=== PATIENT | male | born 1975 | race Hispanic/Latino ===

== ENCOUNTER 2020-02-22 13:55 | Emergency (ER) | payer SELFPAY ==
[2020-02-22] MEDS ORDERED: HYDROcodone/ACETAMINOPHEN 5-325 MG TAB PO ONE (17:19)
--- NOTE | 2020-02-22 17:24 | Emergency Department Report ---
- General Chief complaint: Skin/Abscess/Foreign Body Stated complaint: LEFT SIDE/EYE IRRITATION Time Seen by Provider: 02/22/20 16:59 Source: patient Mode of arrival: Ambulatory Limitations: No Limitations - History of Present Illness Initial comments: Patient is a 44-year-old male who presents emergency room with complaints of an abscess to the left face that began 2 days ago. He states that it initially began as a small hair bump present. He states that he went to the [facility] 2 days ago and had a haircut and his face shaved. He states that when he woke up the next morning he had facial swelling. He states that he has had purulent drainage present from the face. he states that he also has swelling underneath the left eye. He denies any eye drainage, getting anything into the eye, eye pain. He denies any fever, vomiting, diarrhea, chills. No past medical history. No allergies medications. - Related Data Previous Rx's Medication Instructions Recorded Last Taken Type Cyclobenzaprine [Flexeril 10mg] 10 mg PO TID PRN #30 tablet 07/12/14 Unknown Rx HYDROcodone/APAP 5-325 [[place] 1 each PO Q6HR PRN #20 tablet 07/12/14 Unknown Rx 5/325] Ibuprofen [Motrin] 600 mg PO Q8H PRN #40 tablet 07/12/14 Unknown Rx Acetaminophen/Codeine [Tylenol 1 tab PO Q6H PRN #10 tab 02/22/20 Unknown Rx /Codeine # 3 tab] Neomycin/Bacitracin/Polymyxinb 1 applicatio TP BID #1 oint...g. 02/22/20 Unknown Rx [Triple Antibiotic Ointment] Sulfamethoxazole/Trimethoprim 1 each PO BID 7 Days #14 tablet 02/22/20 Unknown Rx [Bactrim DS TAB] Allergies Allergy/AdvReac Type Severity Reaction Status Date / Time No Known Allergies Allergy Unverified 07/12/14 08:36 Abscess Boil HPI - HPI Chief Complaint: Skin/Abscess/Foreign Body Stated Complaint: LEFT SIDE/EYE IRRITATION Time Seen by Provider: 02/22/20 16:59 Home Medications: Previous Rx's Medication Instructions Recorded Last Taken Type Cyclobenzaprine [Flexeril 10mg] 10 mg PO TID PRN #30 tablet 07/12/14 Unknown Rx HYDROcodone/APAP 5-325 [[place] 1 each PO Q6HR PRN #20 tablet 07/12/14 Unknown Rx 5/325] Ibuprofen [Motrin] 600 mg PO Q8H PRN #40 tablet 07/12/14 Unknown Rx Acetaminophen/Codeine [Tylenol 1 tab PO Q6H PRN #10 tab 02/22/20 Unknown Rx /Codeine # 3 tab] Neomycin/Bacitracin/Polymyxinb 1 applicatio TP BID #1 oint...g. 02/22/20 Unknown Rx [Triple Antibiotic Ointment] Sulfamethoxazole/Trimethoprim 1 each PO BID 7 Days #14 tablet 02/22/20 Unknown Rx [Bactrim DS TAB] Allergies/Adverse Reactions: Allergies Allergy/AdvReac Type Severity Reaction Status Date / Time No Known Allergies Allergy Unverified 07/12/14 08:36 ED Review of Systems ROS: Stated complaint: LEFT SIDE/EYE IRRITATION Other details as noted in HPI Comment: All other systems reviewed and negative ED Past Medical Hx - Past Medical History Previous Medical History?: No - Surgical History Past Surgical History?: No - Social History Smoking Status: Never Smoker Substance Use Type: None - Medications Home Medications: Home Medications Medication Instructions Recorded Confirmed Last Taken Type Cyclobenzaprine [Flexeril 10mg] 10 mg PO TID PRN #30 tablet 07/12/14 Unknown Rx HYDROcodone/APAP 5-325 [[place] 1 each PO Q6HR PRN #20 tablet 07/12/14 Unknown Rx 5/325] Ibuprofen [Motrin] 600 mg PO Q8H PRN #40 tablet 07/12/14 Unknown Rx Acetaminophen/Codeine [Tylenol 1 tab PO Q6H PRN #10 tab 02/22/20 Unknown Rx /Codeine # 3 tab] Neomycin/Bacitracin/Polymyxinb 1 applicatio TP BID #1 oint...g. 02/22/20 Unknown Rx [Triple Antibiotic Ointment] Sulfamethoxazole/Trimethoprim 1 each PO BID 7 Days #14 tablet 02/22/20 Unknown Rx [Bactrim DS TAB] ED Physical Exam - General Limitations: No Limitations General appearance: alert, in no apparent distress - Head Head exam: Present: atraumatic - Eye Eye exam: Present: normal appearance, PERRL, EOMI, other (small area of edema under the left eye, no induration, no fluctuance, no eye drainage). Absent: scleral icterus, conjunctival injection, nystagmus Pupils: Present: normal accommodation - ENT ENT exam: Present: mucous membranes moist - Respiratory Respiratory exam: Absent: respiratory distress, accessory muscle use - Neurological Exam Neurological exam: Present: alert, oriented X3 - Psychiatric Psychiatric exam: Present: normal affect, normal mood - Skin Skin exam: Present: warm, dry, other (3 cm area of induration present to the left maxillary region, there are multiple openings with purulent drainage, no necrosis, no skin denuding, no blistering) ED Course Vital Signs 02/22/20 02/22/20 02/22/20 14:10 17:23 17:37 Temperature 99.3 F Pulse Rate 105 H 67 Respiratory 18 18 16 Rate Blood Pressure 156/99 Blood Pressure 137/86 [Right] O2 Sat by Pulse 95 97 Oximetry ED Medical Decision Making - Lab Data Vital Signs 02/22/20 02/22/20 02/22/20 14:10 17:23 17:37 Temperature 99.3 F Pulse Rate 105 H 67 Respiratory 18 18 16 Rate Blood Pressure 156/99 Blood Pressure 137/86 [Right] O2 Sat by Pulse 95 97 Oximetry - Medical Decision Making Patient is a 44-year-old male who presents emergency room with complaints of an abscess to the left face that began 2 days ago. He states that it initially began as a small hair bump present. He states that he went to the [facility] 2 days ago and had a haircut and his face shaved. He states that when he woke up the next morning he had facial swelling. He states that he has had purulent drainage present from the face. he states that he also has swelling underneath the left eye. He denies any eye drainage, getting anything into the eye, eye pain. He denies any fever, vomiting, diarrhea, chills. No past medical history. No allergies medications. Initial vitals with mild tachycardia which improved to normal upon repeat. On exam: 3 cm area of induration present to the left maxillary region, there are multiple openings with purulent drainage, no necrosis, no skin denuding, no blistering, small area of edema under the left eye, no induration, no fluctuance, no eye drainage, EOMI, PERRLA. Examination appears most consistent with carbuncle, does not appear consistent with preseptal cellulitis at this time. It is already open and draining, does not need I&D at this time. Patient given pain medication while in the ED as he states he did not drive. Advised patient that he needs to have the area reexamined within the next 2 to 3 days, he verbalized understanding. Patient given prescription for Bactrim, triple antibiotic ointment, Tylenol with codeine. advised patient Please use medication as prescribed. Do not drive or operate heavy machinery while taking pain medication. Please have area reexamined within the next 2 to 3 days. Please use warm compresses 3-4 times a day. Follow-up with your primary care doctor. Return to emergency room immedi ately for any new or worsening symptoms as discussed. - Differential Diagnosis Abscess, cellulitis, folliculitis, carbuncle, preseptal cellulitis Critical care attestation.: If time is entered above; I have spent that time in minutes in the direct care of this critically ill patient, excluding procedure time. ED Disposition Clinical Impression: Facial abscess Disposition: DC- TO HOME OR SELFCARE Is pt being admited?: No Does the pt Need Aspirin: No Condition: Stable Instructions: Abscess (ED) Additional Instructions: Please use medication as prescribed. Do not drive or operate heavy machinery while taking pain medication. Please have area reexamined within the next 2 to 3 days. Please use warm compresses 3-4 times a day. Follow-up with your primary care doctor. Return to emergency room immediately for any new or worsening symptoms as discussed. Prescriptions: Sulfamethoxazole/Trimethoprim [Bactrim DS TAB] 1 each PO BID 7 Days #14 tablet Neomycin/Bacitracin/Polymyxinb [Triple Antibiotic Ointment] 1 applicatio TP BID #1 oint...g. Acetaminophen/Codeine [Tylenol /Codeine # 3 tab] 1 tab PO Q6H PRN #10 tab PRN Reason: Pain , Severe (7-10) Referrals: your, primary care doctor [Other] - 2-3 Days Time of Disposition: 17:22 Print Language: THAI
[2020-02-22 17:38] VITALS: BP 137/86
== END 2020-02-22 18:25 | disposition home or self-care (01) ==
LOC: ED 13:55
DX: L02.01 Cutaneous abscess of face (principal); Z79.899 Other long term (current) drug therapy
CPT/HCPCS: 99282